=== PATIENT | male | born 1990 | race Caucasian/White ===

== ENCOUNTER 2016-12-06 09:13 | Emergency (ER) | payer OTHER ==
[~2016-12-06] VITALS: Ht 177.8 cm; Wt 70.0 kg
[2016-12-06 09:16] VITALS: BP 117/74; PULSE 65; RESP 15; TEMP 98; O2SAT 98
[2016-12-06] MEDS ORDERED: ACETAMINOPHEN 500 MG CPLT PO ONE (11:00)
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
[2016-12-06] MEDS ORDERED: IBUP-232 PO (12:29)
[2016-12-06 12:37] VITALS: BP 110/77; TEMP 98.1
== END 2016-12-06 12:37 | disposition home or self-care (01) ==
LOC: NEPA 09:13
DX: S23.3XXA Sprain of ligaments of thoracic spine, initial encounter (principal); V43.52XA Car driver injured in collision with other type car in traffic accident, initial encounter; Y93.9 Activity, unspecified; Y92.9 Unspecified place or not applicable; Y99.9 Unspecified external cause status
CPT/HCPCS: 72125; 72128; 73630; 99284; L0150